=== PATIENT | female | born 1950 | race Hispanic/Latino ===

== ENCOUNTER → 2023-07-23 | Outpatient (RCR) | payer MEDICARE | LOC: PT 06-27 08:14 | PROVIDERS: ATTEND Student in an Organized Health Care Education/Training Program | DX: M19.011 Primary osteoarthritis, right shoulder (principal) ==

== ENCOUNTER 2023-09-02 13:54 | Outpatient (RCR) | payer MEDICARE | END 2023-09-22 | disposition home or self-care (01) | LOC: PT 13:54 | PROVIDERS: ATTEND Student in an Organized Health Care Education/Training Program | DX: M19.011 Primary osteoarthritis, right shoulder (principal) ==